=== PATIENT | female | born 1975 | race Caucasian/White ===

== ENCOUNTER 2019-03-23 13:10 | Outpatient (CLI) | payer MEDICAID ==
[~2019-03-23] VITALS: Ht 154.9 cm; Wt 91.6 kg
[~2019-03-23 13:10] MED LIST: PREN-39 PO
[2019-03-23 13:14] VITALS: Ht 154.9 cm; Wt 91.6 kg
[2019-03-23 13:56] VITALS: BP 133/87; PULSE 90; RESP 19
--- NOTE | 2019-03-23 15:11 | PN ---
Triage Information Date/Time March 23, 2019 Reason for visit: Rule out PIH Weeks of Gestation 33 weeks and 1 day /Para 8 para 7 Diabetes: none Hypertention: none Additional information 43-year-old G8, P7 with IUP at 33 weeks and 1 day with care with Dr. Bobby Zaman, was sent from the clinic to triage today for rule out PIH due to borderline elevated blood pressure. Patient denies any headache, blurred vision, epigastric pain or right upper quadrant pain. She denies any leaking of fluid, vaginal bleeding decreased movement or contractions. Objective Vital Signs Date Temp Pulse Resp B/P (MAP) Pulse Ox O2 O2 Flow FiO2 Time Delivery Rate 03/23/19 98.1 90 19 133/87 Room Air 13:56 (102) Heart Rate: 130's Heart Rate Comments NST: Category 1 and appropriate for gestational age Abdomen: Soft, gravid, fundal height consider gestational age NST: Category 1 Blood pressures during monitoring all 130s over 80s Laboratory Tests Test 03/23/19 13:22 03/23/19 13:34 Urine Color YELLOW Urine Clarity CLOUDY A Urine pH 5.0 Urine Specific [place] 1.021 Urine Ketones NEGATIVE Urine Nitrite NEGATIVE Urine Bilirubin NEGATIVE Urine Urobilinogen NEGATIVE Urine Leukocyte Esterase 3+ H Urine Microscopic RBC 7 H Urine Microscopic WBC 22 H Urine Squamous Epithelial Cells MODERATE Urine Bacteria FEW A Urine Hemoglobin NEGATIVE Urine Glucose NEGATIVE Urine Total Protein NEGATIVE White Blood Count 8.1 Red Blood Count 4.27 Hemoglobin 13.0 Hematocrit 37.6 Mean Corpuscular Volume 88.1 Mean Corpuscular Hemoglobin 30.4 Mean Corpuscular Hemoglobin Concent 34.6 Red Cell Distribution Width 12.9 Platelet Count 222 Mean Platelet Volume 10.6 H Immature Granulocytes % 0.700 H Neutrophils % 68.7 Lymphocytes % 22.5 Monocytes % 5.8 Eosinophils % 1.8 Basophils % 0.5 Nucleated Red Blood Cells % 0.0 Immature Granulocytes # 0.060 H Neutrophils # 5.6 Lymphocytes # 1.8 Monocytes # 0.5 Eosinophils # 0.2 Basophils # 0.0 Nucleated Red Blood Cells # 0.0 Prothrombin Time 12.1 Prothrombin Time Ratio 0.9 INR International Normalized Ratio 0.89 Activated Partial Thromboplast Time 28.3 Fibrinogen 604.0 H Sodium Level 137 Potassium Level 4.1 Chloride Level 105 Carbon Dioxide Level 22 Anion Gap 10 Blood Urea Nitrogen 12 Creatinine 0.63 Est Glomerular Filtrat Rate mL/min > 60 Glucose Level 81 Uric Acid 5.7 Calcium Level 9.7 Total Bilirubin 0.5 Direct Bilirubin 0.00 Indirect Bilirubin 0.5 Aspartate Amino Transf (AST/SGOT) 27 Alanine Aminotransferase (ALT/SGPT) 20 Alkaline Phosphatase 228 H Total Protein 7.7 Albumin 3.9 Globulin 3.80 H Albumin/Globulin Ratio 1.02 Results/Medications Result Diagram: 03/23/19 1334 03/23/19 1334 Results 24 hrs Laboratory Tests Test 03/23/19 13:22 03/23/19 13:34 Urine Color YELLOW Urine Clarity CLOUDY A Urine pH 5.0 Urine Specific [place] 1.021 Urine Ketones NEGATIVE Urine Nitrite NEGATIVE Urine Bilirubin NEGATIVE Urine Urobilinogen NEGATIVE Urine Leukocyte Esterase 3+ H Urine Microscopic RBC 7 H Urine Microscopic WBC 22 H Urine Squamous Epithelial Cells MODERATE Urine Bacteria FEW A Urine Hemoglobin NEGATIVE Urine Glucose NEGATIVE Urine Total Protein NEGATIVE White Blood Count 8.1 Red Blood Count 4.27 Hemoglobin 13.0 Hematocrit 37.6 Mean Corpuscular Volume 88.1 Mean Corpuscular Hemoglobin 30.4 Mean Corpuscular Hemoglobin Concent 34.6 Red Cell Distribution Width 12.9 Platelet Count 222 Mean Platelet Volume 10.6 H Immature Granulocytes % 0.700 H Neutrophils % 68.7 Lymphocytes % 22.5 Monocytes % 5.8 Eosinophils % 1.8 Basophils % 0.5 Nucleated Red Blood Cells % 0.0 Immature Granulocytes # 0.060 H Neutrophils # 5.6 Lymphocytes # 1.8 Monocytes # 0.5 Eosinophils # 0.2 Basophils # 0.0 Nucleated Red Blood Cells # 0.0 Prothrombin Time 12.1 Prothrombin Time Ratio 0.9 INR International Normalized Ratio 0.89 Activated Partial Thromboplast Time 28.3 Fibrinogen 604.0 H Sodium Level 137 Potassium Level 4.1 Chloride Level 105 Carbon Dioxide Level 22 Anion Gap 10 Blood Urea Nitrogen 12 Creatinine 0.63 Est Glomerular Filtrat Rate mL/min > 60 Glucose Level 81 Uric Acid 5.7 Calcium Level 9.7 Total Bilirubin 0.5 Direct Bilirubin 0.00 Indirect Bilirubin 0.5 Aspartate Amino Transf (AST/SGOT) 27 Alanine Aminotransferase (ALT/SGPT) 20 Alkaline Phosphatase 228 H Total Protein 7.7 Albumin 3.9 Globulin 3.80 H Albumin/Globulin Ratio 1.02 Imaging Results PROCEDURE: US OB biophysical profile. CLINICAL INDICATION: decreased movements, PIH TECHNIQUE: Multiple sonographic images of the pelvis were obtained. The images were reviewed on a PACS workstation. COMPARISON: No prior studies are available for comparison. FINDINGS: There is a single live intrauterine gestation. Cardiac activity is present with 125 beats per minute. There is a vertex presentation. The placenta is anterior fundal. There is no evidence of placental abruption. ABHIJIT = 9.7 cm. Biophysical profile: movement 2/2 tone 2/2. breathing 2/2 ABHIJIT 2/2 Total 04/20 RPTAT: AA . IMPRESSION: Normal biophysical profile. . Disposition: Discharge Assessment/Plan IUP at 33 weeks and 1 day No evidence of PIH Blood pressures during monitoring are all in normal range and 130s over 80s to 70s PIH labs are normal. Patient asymptomatic. Patient discharged home in stable condition. Strict labor precautions and kick count and PIH precautions discussed with the patient. Patient verbalized understanding. All questions were answered to patient's with satisfaction. Follow-up with primary OB office within 1 to 2 days after discharge from the hospital discussed All the danger signs and symptoms reviewed with the patient with INGRIS DAO MD Mar 23, 2019 15:11
--- NOTE | 2019-03-24 11:26 | NSTRPT ---
NST Information Datetime Report Generated by CPN: 03/24/2019 11:26 Datetime: 03/23/2019 13:33 NST Information EGA: 33.1 Datetime: 03/23/2019 11:43 NST Information EGA: 33.1 Datetime: 03/23/2019 11:25 Test Number: 1 Time on Monitor: 03/23/2019 11:50 Time off Monitor: 03/23/2019 13:53 NST Duration (Min): 123 Reason for NST: Poor Growth; Other Reason for NST Other: Advanced Maternal Age/Size less than dates Test and Monitor Explained: Monitor Explained; Test Explained; Verbalized Understanding; Breastfeed ing Info Given Pulse: 67 Resp: 18 SBP: 142 DBP: 83 Test Evaluation NST Interventions: None Patient States Movement: Present Contraction Frequency: NONE FHR Baseline : 130 Variability: Moderate 6-25bpm Accelerations: 15X15 Decelerations: None FHR Category: Category I NST Results: Reactive Comments: To u/s.ABHIJIT 9.0cm. CEPHALIC. BP: 141/86, 142/84. Pt denies any heacaches, blurry vision, epigastric pain. Electronically Signed By E-Signature: with User ID: [id number]
== END 2019-03-23 15:30 | disposition home or self-care (01) ==
LOC: OBT 13:10 → L-D 13:11 → OBT 15:30
PROVIDERS: ATTEND Obstetrics & Gynecology
DX: O60.03 Preterm labor without delivery, third trimester (principal); O09.523 Supervision of elderly multigravida, third trimester; O13.9 Gestational [pregnancy-induced] hypertension without significant proteinuria, unspecified trimester; Z3A.33 33 weeks gestation of pregnancy
CPT/HCPCS: 76818; 80053; 81001; 84560; 85025; 85384; 85610; 85730; Z7500; G0463

== ENCOUNTER 2019-03-27 12:39 | Inpatient (IN) | payer MEDICAID ==
[~2019-03-27] VITALS: Ht 154.9 cm; Wt 93.5 kg
--- NOTE | 2019-03-27 13:17 | TRIAGE ---
OB Triage Datetime Report Generated by CPN: 03/27/2019 13:17 Datetime: 03/27/2019 12:31 Time of Arrival: 03/27/2019 12:31 EGA: 33.5 Arrived By: Ambulatory Arrived From: Other Unit in Hospital Chief Complaint: PT CAME IN FROM NST CLINIC DUE TO HIGH BLOOD PRESSURESS 154/77, 156/83, 138/86, PT STATES HAVING BLURRED VISION, DENIES EPIGASTRIC PAIN AND STATES THAT HER HANDS HAVE BEEN SWELLEND Movement: Present Contractions: Denies/Absent Rupture of Membranes: Denies Vaginal Discharge: Denies Recent Sexual Intercouse: Denies Abdominal Trauma: Not Applicable Time Provider Notified: 03/27/2019 12:50 Provider Notified: ESHAGHIAN Datetime: 03/23/2019 15:11 Labor Evaluation Frequency: occas Monitor Mode: External Duration (sec)2399: 50-80 Quality: Mild Pattern: Normal: <= 5 Contractions in 10 Minutes Resting Tone [place]: Relaxed Heart Rate FHR Baseline Rate: 140 Monitor Mode: External US Variability: Moderate 6-25 bpm Accelerations: 15X15 Decelerations: None Category: Category I Datetime: 03/23/2019 13:54 Labor Evaluation Frequency: 0 Monitor Mode: External Pattern: Normal: <= 5 Contractions in 10 Minutes Resting Tone [place]: Relaxed Heart Rate FHR Baseline Rate: 135 Monitor Mode: External US Variability: Moderate 6-25 bpm Accelerations: 15X15 Decelerations: None Category: Category I Datetime: 03/23/2019 13:52 Assessment Type: Triage Maternal Assessment Level of Consciousness: Keenly Alert, Responsive DTR's/Clonus: DTRs 2+; No Clonus Headache: Denies Blurred Vision: No Respiratory Effort: Unlabored; Regular Rhythm; Equal Expansion Breath Sounds, Left: Clear and Equal Breath Sounds, Right: Clear and Equal Nausea/Vomiting: Denies RUQ Epigastric Pain: Denies Lower Extremities Edema: None Degree: None Upper Extremities Edema: None Degree: None Facial Edema: None Fall Risk Assessment History of Falling: (0) No Secondary Diagnosis: (0) No Ambulatory Aid: (0) Bedrest/Nurse Assist IV Therapy: (0) No Gait: (0) Normal/Bedrest/Immobile Mental Status: (0) Oriented to Own Ability Fall Score: 0 Fall Risk Score Definition: No Risk: No action required Datetime: 03/23/2019 13:33 EGA: 33.1 Datetime: 03/23/2019 13:20 Time of Arrival: 03/23/2019 12:53 EGA: 33.1 Arrived By: Ambulatory Arrived From: Other Unit in Hospital Movement: Present Contractions: Denies/Absent Rupture of Membranes: Denies Vaginal Bleeding: None Vaginal Discharge: Denies Recent Sexual Intercouse: Denies Abdominal Trauma: Not Applicable Patient Complaints: Other Additional Patient Complaints: ELEVATED BP'S Time Provider Notified: 03/23/2019 15:14 Provider Notified: DR MIKE Initial Plan: PI LABS NST AND BPP
[2019-03-27 14:20] VITALS: BP 128/86; PULSE 65; RESP 18
--- NOTE | 2019-03-27 14:51 | PREOPHP ---
DATE OF ADMISSION: 03/27/2019 HISTORY OF PRESENT ILLNESS: The patient is a 43-year-old 8, para 7, EDC 05/02/2019, intraute rine at 33 weeks and 5 days gestational age, was sent from [facility] clinic for evaluation of carlos vated blood pressure. Her highest blood pressure was 162/95. She currently denies any headache, iman sea, vomiting, shortness of breath, visual change, or epigastric pain and her indication for her nons tress test was for small for dates and advanced maternal age. PAST MEDICAL HISTORY: None. MEDICATIONS: vitamins. PAST SURGICAL HISTORY: None. OBSTETRIC HISTORY: x6 vaginal deliveries, x1 delivery. GYNECOLOGIC HISTORY: 14, regular 3 to 4 days. Denies any sexually transmitted infections. Sexually active with 1 partner. SOCIAL HISTORY: Denies any smoking, drugs or alcohol. FAMILY HISTORY: None. REVIEW OF SYSTEMS: All within normal except history of present illness. PHYSICAL EXAMINATION: HEENT: Within normal. LUNGS: CTA bilateral. CARDIOVASCULAR: S1, S2, regular rhythm. ABDOMEN: Gravid, nontender. Negative CVA bilateral. EXTREMITIES: Negative edema. No calf tenderness. PELVIC: Vaginal exam of 130 -3. heart tracing category 1. [place]: Occasional contractions. ASSESSMENT: A 43-year-old 8, para 7, intrauterine at 33 weeks and 5 days gestation al age, gestational hypertension, rule out preeclampsia, advanced maternal age, previous sec tion x1. PLAN: Admit patient for seizure prophylaxis with magnesium sulfate. PIH labs with 24-hour urine col lection, labetalol IV push/antihypertensive medication. Biophysical profile with an EFW, steroid walter atment for lung maturity and perinatology and neonatology consult. Continue strict preeclampti c precautions. Dictated By: VIDA GARNER MD ME/MARGIE Conf#: [id number] DID#: [id number]
[2019-03-27] MEDS: LACTATED RINGER'S 1,000 ML IV SCH ×2 (14:54→22:17)
[2019-03-27] MEDS ORDERED: MAGNESIUM SULFATE 4 GM/100 ML 100 ML IV ONE (15:00)
[2019-03-27] MEDS ORDERED: LABETALOL HCL 20MG INJ IV PRN (15:00)
[2019-03-27] MEDS: MAGNESIUM SULFATE 20 GM/500 ML 500 ML IV SCH (15:52)
[2019-03-27] MEDS: BETAMET NA PHOS/AC(6 MG/ML) 2 ML INJ SYG IM SCH (16:12)
[2019-03-28] MEDS: MAGNESIUM SULFATE 20 GM/500 ML 500 ML IV SCH ×2 (00:12→11:27)
[2019-03-28] MEDS ORDERED: ACETAMINOPHEN 325 MG TAB PO PRN (00:30)
[2019-03-28] MEDS: PRENATAL VITAMIN PO SCH (09:47)
[2019-03-28] MEDS: FERROUS SULFATE (EC) 325 MG TAB PO SCH (09:47)
[2019-03-28] MEDS: LACTATED RINGER'S 1,000 ML IV SCH (11:27)
[2019-03-28] MEDS: BETAMET NA PHOS/AC(6 MG/ML) 2 ML INJ SYG IM SCH (16:03)
--- NOTE | 2019-03-28 18:45 | QN ---
Documentation Comment progress note patient seen and evaluated no headache n/v,sob, visual changes, epigastric pain vs stable afebrile ab gravid, nt extremity no edema no calf tenderness a/ A 43-year-old 8, para 7, intrauterine at 33 weeks and 5 days gestational age, gestational hypertension, rule out preeclampsia, advanced maternal age, previous section x1. s/p mg and steroid treatment p/ f/u 24 hr urine collection preeclamptic precautions VIDA GARNER MD Mar 28, 2019 18:45
[2019-03-28] MEDS ORDERED: GLUCOSE GEL 15 GRAM TUBE PO PRN ×2 (21:00)
[2019-03-28] MEDS ORDERED: DEXTROSE 50% 50 ML SYRINGE IV PRN ×2 (21:00)
[2019-03-28] MEDS ORDERED: GLUCAGON 1 MG INJ IM PRN (21:00)
[2019-03-28] MEDS ORDERED: INSULIN REGULAR, HUMAN 100 UNIT/1 ML 3ML VIAL SC ONE (21:00)
[2019-03-28] MEDS ORDERED: GLUCOSE GEL 15 GRAM TUBE BUCCAL PRN (21:00)
[2019-03-28 21:08] VITALS: Ht 154.9 cm; Wt 93.5 kg
[2019-03-29] MEDS: PRENATAL VITAMIN PO SCH (09:55)
[2019-03-29] MEDS: FERROUS SULFATE (EC) 325 MG TAB PO SCH (09:55)
--- NOTE | 2019-03-29 18:44 | LDN ---
Date/Time of Note Date/Time of Note DATE: 03/29/19 TIME: 18:43 Delivery Summary Weeks of Gestation 39 Placenta Delivered: Spontaneously Meconium: Thick Episiotomy: No Anesthesia type: None Estimated blood loss: 150 Sponge & Needle done & correct: Yes All needle counts correct: Yes Any foreign bodies felt in the: No Delivery Information Sex Infant Sex: female Apgars 1 Minute: 8 5 Minute: 9 Suctioning Nose & mouth suctioned at sanjana: No Delee suction performed: No Umbilical Cord Umbilical cord with: 3 Vessels Cord presentations: no nuchal cord Cord Blood was obtained: Yes VIDA GARNER MD Mar 29, 2019 18:44
--- NOTE | 2019-03-29 18:53 | QN ---
Documentation Comment progress note patient seen and evaluated no headache n/v,sob, visual changes, epigastric pain vs stable afebrile ab gravid, nt extremity no edema no calf tenderness a/ A 43-year-old 8, para 7, intrauterine at 33 weeks and 6 days gestational age, gestational hypertension, rule out preeclampsia, advanced maternal age, previous section x1. s/p mg and steroid treatment p/ f/u 24 hr urine collection preeclamptic precautions discharge home if stable VIDA GARNER MD Mar 29, 2019 18:53
--- NOTE | 2019-03-29 18:57 | PD.PPDC ---
CIRCULATION REPRESENTATIVE Discharge Instruction Condition [id number] Patient Condition: Wyzrl1u Fair Diet Lojkj1Gq Diet: Mqgeh1h Special Diet (low sodium) Follow-up Follow-up with Physician: 1, Day/Days Provider Information: blood pressure check Return to clinic for [id number] SLABBER LIGHT Instructions: [id number] Fever greater than 101 Chills Worsening abdominal pain Excessive Vaginal Bleeding More than 2 pads per hour Unable to tolerate diet [id number] OB Instructions: Creny1a Breast Tenderness Depression Blurried Vision Headache VIDA GARNER MD Mar 29, 2019 18:57
--- NOTE | 2019-03-30 03:28 | DS ---
DATE OF ADMISSION: 03/27/2019 DATE OF DISCHARGE: 03/29/2019 PRIMARY DIAGNOSIS: Intrauterine at 33 weeks and 6 days gestational age with gestational hy pertension, undelivered. PROCEDURE: None. CONDITION ON DISCHARGE: Stable. ACTIVITY: As tolerated. DIET: Low sodium. MEDICATIONS ON DISCHARGE: Continue vitamins. DISCHARGE SUMMARY: Ms. Ginna Padilla is a 43-year-old female currently a 33 weeks and 6 days gesta tional age, was admitted on 03/27/2019, secondary to elevated blood pressures, which was found during her NST clinic. During her stay at the hospital, she received steroid treatment for lung matu rity and was also given magnesium sulfate for seizure prophylaxis. She currently denies any headache , nausea, vomiting, shortness of breath, visual changes or epigastric pain. Her blood pressures have been stable. She will be discharged home on 03/29/2019, after a 24-hour urine collection has been c ollected and strict preeclamptic precautions are given to the patient. The patient will follow up in the clinic with her primary OB doctor the following day for blood press ure check and for further evaluation. Dictated By: VIDA ARGUETA/MARGIE Conf#: [id number] DID#: [id number]
--- NOTE | 2019-03-30 13:16 | NSTRPT ---
NST Information Datetime Report Generated by CPN: 03/30/2019 13:16 Datetime: 03/27/2019 10:26 NST Information EGA: 33.5 Test Number: 2 Time on Monitor: 03/27/2019 11:19 Time off Monitor: 03/27/2019 11:39 NST Duration (Min): 20 Reason for NST: Poor Growth; Other Reason for NST Other: Advanced Maternal Age/Size less than dates Test and Monitor Explained: Monitor Explained; Test Explained; Verbalized Understanding Pulse: 67 Resp: 16 SBP: 154 DBP: 77 Test Evaluation NST Interventions: None Patient States Movement: Present Contraction Frequency: 0 FHR Baseline : 145 Variability: Moderate 6-25bpm Accelerations: 15X15 Decelerations: None FHR Category: Category I NST Results: Reactive Comments: To u/s CEPHALIC ABHIJIT-13.4CM Repeat BP's 156/83, 138/[address] Xie, recommends evaluation in Triage. Call placed to Casimiro Zaman. Report called to Keiry Thao, Triage. POC discussed with pt, states understanding and w ill go to triage for evaluation. Electronically Signed By E-Signature: with User ID: [id number] Datetime: 03/23/2019 13:33 NST Information EGA: 33.1 Datetime: 03/23/2019 11:43 NST Information EGA: 33.1 Datetime: 03/23/2019 11:25 NST Duration (Min): 123
== END 2019-03-29 22:00 | disposition home or self-care (01) | DRG 833 ==
LOC: OBT 12:39 → L-D 12:42 → OBT 12:50 → L-D 19:24
PROVIDERS: ADMIT Obstetrics & Gynecology; ATTEND Obstetrics & Gynecology
DX: O13.3 Gestational [pregnancy-induced] hypertension without significant proteinuria, third trimester (principal); O36.5930 Maternal care for other known or suspected poor fetal growth, third trimester, not applicable or unspecified; O09.523 Supervision of elderly multigravida, third trimester; Z3A.33 33 weeks gestation of pregnancy
CPT/HCPCS: 76815; 76817; 76818; 80053; 81001; 82575; 82962; 83036; 83735; 84156; 84560; 85025; 85384; 85610; 85730; 86850; 86900; 86901; G0463; J0702; J1815; J3475; J7120

== ENCOUNTER 2019-04-13 13:00 | Outpatient (CLI) | payer MEDICAID ==
[~2019-04-13] VITALS: Ht 154.9 cm; Wt 93.1 kg
[2019-04-13 13:35] VITALS: Ht 154.9 cm; Wt 93.1 kg
[2019-04-13 13:37] VITALS: BP 152/86; PULSE 65; RESP 19
== END 2019-04-13 15:35 | disposition home or self-care (01) ==
LOC: OBT 13:00 → L-D 13:00 → OBT 15:35
PROVIDERS: ATTEND Obstetrics & Gynecology
DX: O24.419 Gestational diabetes mellitus in pregnancy, unspecified control (principal); O13.3 Gestational [pregnancy-induced] hypertension without significant proteinuria, third trimester; O36.5930 Maternal care for other known or suspected poor fetal growth, third trimester, not applicable or unspecified; O23.43 Unspecified infection of urinary tract in pregnancy, third trimester; O09.523 Supervision of elderly multigravida, third trimester; Z3A.36 36 weeks gestation of pregnancy
CPT/HCPCS: 76818; 80053; 81001; 84560; 85025; 85384; 85610; 85730; 87086; Z7500; G0463

== ENCOUNTER 2019-04-19 14:10 | Inpatient (IN) | payer MEDICAID ==
[~2019-04-19] VITALS: Ht 154.9 cm; Wt 94.4 kg
[~2019-04-19 14:10] MED LIST changes: +EPHEDrine 25 MG/5 ML SYG ONE; +OXYTOCIN 30 UNITS/LR 500 ML BAG IV ONE; +PHENYLephrine (100 MCG/ML) 10ML SYG ONE
[2019-04-19 15:01] VITALS: BP 145/81; PULSE 68; RESP 18; Ht 154.9 cm; Wt 94.4 kg
[2019-04-19] MEDS ORDERED: LACTATED RINGER'S 1,000 ML IV SCH (18:03)
[2019-04-19] MEDS ORDERED: MAGNESIUM SULFATE 20 GM/500 ML 500 ML IV SCH ×2 (18:05→18:19)
[2019-04-19] MEDS ORDERED: MAGNESIUM SULFATE 4 GM/100 ML 100 ML ONE (18:05)
[2019-04-19] MEDS ORDERED: MAGNESIUM SULFATE 4 GM/100 ML 100 ML IVPB ONE (18:15)
[2019-04-19] MEDS ORDERED: LABETALOL HCL 20MG INJ ONE (18:25)
[2019-04-19] MEDS ORDERED: CARBOPROST 250 MCG INJ IM PRN (18:30)
[2019-04-19] MEDS ORDERED: LABETALOL HCL 20MG INJ IV PRN ×2 (18:30)
[2019-04-19] MEDS ORDERED: OXYTOCIN 30 UNITS/LR 500 ML IV PRN (18:30)
[2019-04-19] MEDS ORDERED: METHYLERGONOVINE 0.2 MG INJ IM PRN (18:30)
[2019-04-19] MEDS ORDERED: hydrALAzine 20 MG INJ IV PRN (18:30)
[2019-04-19] MEDS ORDERED: CEFAZOLIN 2 GM/50 ML (PMX) 50 ML IVPB SCH (18:30)
[2019-04-19] MEDS ORDERED: MISOPROSTOL 200 MCG TAB PR PRN (18:30)
[2019-04-19] MEDS ORDERED: MAGNESIUM SULFATE 2 GM/50 ML 50 ML IVPB SCH (18:30)
[2019-04-19] MEDS ORDERED: LABETALOL HCL 20MG INJ IV ONE (18:30)
[2019-04-19] MEDS ORDERED: MAGNESIUM SULFATE 4 GM/100 ML 100 ML IV ONE (18:30)
[2019-04-19] MEDS ORDERED: OXYTOCIN 30 UNITS/LR 500 ML IV SCH (18:30)
--- NOTE | 2019-04-19 21:03 | PREAC ---
Date/Time of Note Date/Time of Note DATE: 04/19/19 TIME: 21:02 Anesthesia Eval and Record Evaluation Time Pre-Procedure Interview DATE: 04/19/19 TIME: 21:02 Age 43 Sex female NPO: 8 hrs Preoperative diagnosis Planned procedure c/s Past Medical History Past Medical History: Includes Cardio: HTN GI: Obesity Surgery & Anesthesia Issues No known issue Meds Anticoagulation: No Beta Teresa within 24 hr: No Reason Beta Teresa not given: Pt. not on B-Teresa Reported Medications Vits W-Ca,Fe,Fa(<1MG) ( Vitamins) 1 Tab Tablet, 1 TAB PO DAILY 03/27/14 Current Medications Lactated Ringer's 1,000 ml @ 125 mls/hr Q8H IV Last administered on 04/19/19at 18:21; Admin Dose 125 MLS/HR; Start 04/19/19 at 18:03 Cefazolin Sodium/ Dextrose 50 ml @ 100 mls/hr ONCE IVPB ; Start 04/19/19 at 18:30 Oxytocin/Lactated Ringer's 500 ml @ 125 mls/hr POST IV ; Start 04/19/19 at 18:30 Oxytocin/Lactated Ringer's 500 ml @ 0 mls/hr ONCE PRN IV .VAGINAL BLEEDING; Start 04/19/19 at 18:30 Methylergonovine Maleate (Methergine) 0.2 mg ONCE PRN IM .VAGINAL BLEEDING; Start 04/19/19 at 18:30 Carboprost Tromethamine (Hemabate) 250 mcg ONCE PRN IM .VAGINAL BLEEDING; Start 04/19/19 at 18:30 Misoprostol (Cytotec) 1,000 mcg ONCE PRN IN .VAGINAL BLEEDING; Start 04/19/19 at 18:30 Labetalol HCl (Labetalol) 40 mg ONCE PRN IV ELEVATED BLOOD PRESSURE; Start 04/19/19 at 18:30 Labetalol HCl (Labetalol) 80 mg ONCE PRN IV ELEVATED BLOOD PRESSURE; Start 04/19/19 at 18:30 Hydralazine HCl (Apresoline) 10 mg ONCE PRN IV ELEVATED BLOOD PRESSURE; Start 04/19/19 at 18:30 Magnesium Sulfate 500 ml @ 50 mls/hr Q10H IV Last administered on 04/19/19at 18:38; Admin Dose 50 MLS/HR; Start 04/19/19 at 18:19 Meds reviewed: Yes Allergies Coded Allergies: shrimp (Verified Allergy, Mild, HIVES, 04/19/19) Allergies Reviewed: Yes Labs/Studies Labs Reviewed: Reviewed by anesthesiologist Result Diagram: 04/19/19 1548 04/19/19 1817 Laboratory Tests 04/19/19 15:48 04/19/19 18:17 Blood Bank Test 04/19/19 15:45 Antibody Screen NEGATIVE Blood Type O POSITIVE Rh Immune Globulin Candidate NO test: Positive Pre-procedure Exam Last vitals Vital Signs Date Temp Pulse Resp B/P (MAP) Pulse Ox O2 O2 Flow FiO2 Time Delivery Rate 04/19/19 98.2 68 18 145/81 Room Air 15:01 (102) Airway: Adequate mouth opening, Adequate thyromental dist Mallampati: Mallampati II Teeth: Normal Lung: Normal Heart: Normal ASA Physical Status ASA physical status: 2 Emergency: None Planned Anesthetic Neuraxial: Spinal, Epidural Planned Pain Management Sub-arachniod narcotics Pre-operative Attestations Prior to commencing anesthesia and surgery, the patient was re-evaluated, there was verification of: *The patient's identity *The results of appropriate recent lab work and preoperative vital signs *The above evaluation not changing prior to induction *Anesthetic plan, risk benefits, alternative and complications discussed with patient/family; questions answered; patient/family understands, accepts and wishes to proceed. BABS KEMP Apr 19, 2019 21:03
[2019-04-19] MEDS ORDERED: morphine SULFATE/PF (10 MG/10 ML) INJ ONE (21:11)
[2019-04-19] MEDS ORDERED: ONDANSETRON 4 MG INJ IV STA (21:27)
[2019-04-19] MEDS ORDERED: CITRIC ACID/NA CITRATE 30 ML CUP PO ONE (21:30)
[2019-04-19] MEDS ORDERED: HYDROmorphONE 1 MG/5 ML IV SYRINGE IV PRN ×3 (21:30)
[2019-04-19] MEDS ORDERED: NALOXONE (0.4 MG/ML) INJ IV PRN (21:30)
[2019-04-19] MEDS ORDERED: ALBUTEROL 0.083% (NEB) 2.5 MG/3 ML AMP HHN PRN (21:30)
[2019-04-19] MEDS ORDERED: ONDANSETRON 4 MG INJ IV PRN ×2 (21:30)
[2019-04-19] MEDS ORDERED: DIPHENHYDRAMINE 50 MG INJ IV PRN ×2 (21:30)
[2019-04-19] MEDS ORDERED: FENTAnyl 50 MCG/ML VIAL IV PRN ×3 (21:30)
[2019-04-19] MEDS ORDERED: KETOROLAC 30 MG INJ IV PRN ×2 (21:30)
[2019-04-19] MEDS ORDERED: METOCLOPRAMIDE 10 MG INJ IV ONE (21:30)
[2019-04-19] MEDS ORDERED: HYDROmorphONE 0.5 MG/0.5 ML SYG IV PRN ×2 (21:30)
[2019-04-19] MEDS ORDERED: METOCLOPRAMIDE 10 MG INJ IV PRN (21:30)
[2019-04-20] VITALS (22 sets, daily range): BP systolic 115–140; BP diastolic 58–83; PULSE 73–101; RESP 16–18
--- NOTE | 2019-04-20 01:10 | HP ---
Date/Time of Note Date/Time of Note DATE: 04/20/19 TIME: 00:56 OB - History Hx of Present Free Text/Dictation April 19, 2019 Late entry note Estimated Due Date: Apr 20, 2019 : 8 Para: 7 Care: Good Care Other Concerns: 43-year-old with IUP at 37 weeks and care with priority clinic, was sent from the clinic due to elevated blood pressure noted during office visi t. Patient was sent for rule out PIH. Antepartum course was considered complicated by GDM A1 diet control. Patient also had a history of x1 and after x1. During observation in triage noted to have elevated blood pressure in the range of 180s over 90s. Patient was asymptomatic however due to elevated blood pressure in the severe range that meet the criteria for severe preeclampsia discussed with the patient regarding section. She received a dose of labetalol 20 mg IV and started on magnesium for seizure prophylaxis. Past Family/Social History * Past Medical, Surgical, Family and Obstetric Histories reviewed from chart. Blood Type: O+ Rubella: immune RPR/VDRL: Negative GBS Status: Positive HBsAG: Negative OB Admission Exam Vital Signs Vital Signs Vital Signs Date Temp Pulse Resp B/P (MAP) Pulse Ox O2 O2 Flow FiO2 Time Delivery Rate 04/19/19 98.2 68 18 145/81 Room Air 15:01 (102) Physical Exam HEENT: WNL Lungs: Clear Abdomen: WNL Extremities: Normal Cervical Dilatation: None Effacement: 0% Station: -3 Membranes: Intact Heart Rate: 130's Accelerations: Accelerations Present Decelerations: No Decelerations Varibility: Moderate Contractions on Admission: >10 Minutes Apart Intensity: Mild Last 72 hourBlood Glucose PROCEDURE: US Obstetrical , limited CLINICAL INDICATION: Biophysical profile for well being, gestational diabetes. TECHNIQUE: Multiple real-time images were acquired of the patient's maternal abdomen utilizing a curved array transducer. COMPARISON: 04/13/2019 FINDINGS: There is a single live intrauterine fetus in a cephalic presentation. The placenta is implanted fundal/anteriorly and is grade II. There is no placenta previa or abruptio evident. The amniotic fluid index measures 9.1 cm. The heart rate is 168 beats per minute. Biophysical profile: Tone: 2 breathin Gross body movement: 2 Amniotic fluid: 2 Biophysical profile score: 8/8 IMPRESSION: 1. Single live intrauterine fetus, cephalic presentation, unchanged. The heart rate is 168 bpm. 2. Fundal/anterior placenta, grade 2, no previa or abruptio is evident. 3. Amniotic fluid index 9.1 cm. 4. Biophysical profile score: 8/8, unchanged. Last 72 hours Lab Results CBC & BMP 04/19/19 15:48 04/19/19 18:17 Liver Function Test 04/19/19 15:48 Alanine Aminotransferase (ALT/SGPT) 29 Albumin 3.2 L Alkaline Phosphatase 226 H Aspartate Amino Transf (AST/SGOT) 21 Direct Bilirubin 0.00 Total Protein 6.5 OB Assessment/Plan Other Assessment: IUP at 37 weeks Chronic hypertension with superimposed severe preeclampsia based on blood pressure criteria, required IV antihypertensive medication Renal GDM x1 diet controlled History of x1 and [place] x 1 Grand multiparous, Far from labor. Discussed with the patient regarding section, Risk and benefit of section including risk of infection, bleeding, damage to surrounding structures including bowel and bladder and risk of blood transfusion including but not limited to blood borne infection including HIV, hepatitis B and C and transfusion reaction discussed with the patient in detail informed consent was obtained. Patient verbalized understanding all above risks. She accepts blood transfusion in case of emergency. All questions were answered to patient's best satisfaction OR in NICU and anesthesia was notified. Consented for section. Received Ancef prior to go to the OR INGRIS MIKE MD Apr 20, 2019 01:07
--- NOTE | 2019-04-20 01:20 | OPR ---
Operative Report Planned Procedure Free Text/Dictation Late entry note Procedure date Apr 20, 2019 Procedure(s) Repeat section via Pfannenstiel skin incision Performed by see signature line Document Review Specialist: NASEEM HECK Anesthesiologist: BABS KEMP Pre-procedure diagnosis 1. IUP at 37 weeks 2. Superimposed severe preeclampsia 3. History of x1 and TOLAC x1. Far from labor 4. GDM, A1, diet-controlled [id number] Anesthesia Type: [id number] spinal Post-Procedure Post-procedure diagnosis Same Findings Live Baby [Girl], Apgars [8, 9] and weight 8 lb and 5 oz position Vertex, presentation Estimated Blood Loss: 500 - 600 mls Specimen(s) none Grafts/Implant(s) none Complication(s) none Pt Condition post procedure: stable Disposition: PACU Procedure Description 43-year-old G8, P7 IUP at 37 weeks and history of chronic hypertension, GDM A1 and x1, was sent from clinic to rule out PIH due to elevated blood pressure in the office visit. Patient noted to have elevated blood pressure in the range of severe and required IV labetalol For that reason patient was candidate for repeat section. Risk and benefit of section including risk of infection, bleeding, damage to surrounding structures including bowel and bladder and risk of blood transfusion including but not limited to blood borne infection including HIV, hepatitis B and C and transfusion reaction discussed with patient informed consent was obtained. Patient received a dose of Ancef prior to be taken to the OR. She was then taken to the OR and was placed in dorsal supine position after adequate spinal anesthesia. Timeout procedure completed and patient was identified correctly. first a Pfannenstiel skin incision was made in the area of prior incision was carried down to the underlying layer fascia using scalpel and Bovie. Superior aspect of fascial incision was then grasped using [place], was elevated and was dissected off of the rectus muscle using blunt and sharp dissection. Then the inferior aspect of fascial incision in a similar fashion was grasped using Diane, was elevated dissected off of the parameters muscle in a similar f ashion. Rectus muscle was dissected in the midline. Parietal peritoneum was entered bluntly. Intra-abdominal cavity entered without any complication. Omental adhesion was noted that was gently lysed carefully. Lower uterine segment was identified. Bladder flap was created. Lower uterine incision was incised transversely. Baby's head was grasped was brought up to the incision while mobile sales assistant was applying fundal pressure vertex was delivered. Upon delivery of the head nose and mouth was suctioned immediately. Then posterior shoulder and anterior shoulder and the rest of the body while mobile sales assistant was applying fundal pressure was delivered without any complication. Delayed cord clamp for 30 seconds done. Cord was then clamped and cut and baby was handed to the waiting nursing team. Placenta was delivered intact and complete. Uterus was cleared of all clots and debris's. Uterine incision repaired in 2 layers using 1-0 Monocryl. First layer used for hemostasis and the second layer used for imbrication. After assurance about hemostasis and Surgicel was applied over the incision. Gutters were cleared of all clots and debris's. Parietal peritoneum was then repaired in the midline using 2-0 Vicryl. Rectus muscle was reapproximated using 2-0 Vicryl. Hemostasis of the muscle was obtained. The fascia was repaired using 1-0 PDS. Irrigation of suppleness tissue performed using warm normal saline. Hemostasis of subcutaneous tissue obtained. The skin was reapproximated using in sorb. Fundus was firm at the end of the delivery. Patient tolerated the procedure well. Sponge lap and needle counts were correct x2 Patient was then transferred to Recovery room in stable condition INGRIS MIKE MD Apr 20, 2019 01:20
[2019-04-20] MEDS ORDERED: OXYTOCIN 30 UNITS/LR 500 ML IV SCH (01:23)
[2019-04-20] MEDS ORDERED: OXYTOCIN 30 UNITS/LR 500 ML IV PRN (01:30)
[2019-04-20] MEDS ORDERED: NACL 0.9% 3 ML SYG IV SCH ×2 (01:30)
[2019-04-20] MEDS ORDERED: CA GLUCONATE (GM) 10% 10ML INJ IV PRN (01:30)
[2019-04-20] MEDS ORDERED: CARBOPROST 250 MCG INJ IM PRN (01:30)
[2019-04-20] MEDS ORDERED: MAGNESIUM SULFATE 4 GM/100 ML 100 ML IV SCH (01:30)
[2019-04-20] MEDS ORDERED: MISOPROSTOL 200 MCG TAB PR PRN (01:30)
[2019-04-20] MEDS ORDERED: LANOLIN HPA 1 PKT TOP PRN (01:30)
[2019-04-20] MEDS ORDERED: IBUPROFEN 600 MG TAB PO SCH (01:30)
[2019-04-20] MEDS: MAGNESIUM SULFATE 20 GM/500 ML 500 ML IV SCH ×3 (01:51→17:11)
[2019-04-20] MEDS ORDERED: ONDANSETRON 4 MG INJ IV PRN ×2 (05:30→09:00)
[2019-04-20] MEDS ORDERED: DIPHENHYDRAMINE 50 MG INJ IV PRN ×2 (05:30→09:00)
[2019-04-20] MEDS ORDERED: KETOROLAC 30 MG INJ IV PRN (09:00)
[2019-04-20] MEDS ORDERED: NALOXONE (0.4 MG/ML) INJ IV PRN (09:00)
[2019-04-20] MEDS ORDERED: ZOLPIDEM 5 MG TAB PO PRN (09:00)
[2019-04-20] MEDS ORDERED: HYDROmorphONE 0.5 MG/0.5 ML SYG IV PRN ×2 (09:00)
--- NOTE | 2019-04-20 11:12 | QN ---
Documentation Comment progress note pod 1 patient was seen and evaluated no compliants no headache, n/v, sob, visual changes, epigastric pain vs stable afebrile lung cta bl ab dressing clean/dry no distention, non tenderness extremity no edema no calf tenderness a/ sp repeat cd pod 1 currently on mg secondary to preeclampsia p/ discontinue mg and norman 24 hrs pp f/u cbc preeclamptic precautions VIDA GARNER MD Apr 20, 2019 11:12
[2019-04-20] MEDS: LACTATED RINGER'S 1,000 ML IV SCH (12:22)
[2019-04-20] MEDS: KETOROLAC 30 MG INJ IV PRN ×2 (16:44→22:44)
[2019-04-20] MEDS ORDERED: MAGNESIUM SULFATE 20 GM/500 ML 500 ML IV SCH (23:00)
[2019-04-21 00:30] VITALS: BP 124/68; PULSE 92; RESP 18
[2019-04-21] MEDS: LACTATED RINGER'S 1,000 ML IV SCH ×2 (00:50→14:10)
[2019-04-21] MEDS: HYDROCODONE/APAP (5/325) TAB PO PRN ×4 (02:35→22:48)
[2019-04-21 04:15] VITALS: BP 126/69; PULSE 89; RESP 18
[2019-04-21 08:00] VITALS: BP 115/86; PULSE 94; RESP 18
[2019-04-21 16:44] VITALS: BP 126/78; PULSE 95; RESP 18
--- NOTE | 2019-04-21 17:25 | QN ---
Documentation Comment NO c/o no b.m et VSS afebrile fundus firm abdomen soft wound dry Bs 72 lochia min calf neg for tenderness A stable psot RC/S#2 P d/s home in am JAYSHREE DENTON MD Apr 21, 2019 17:25
[2019-04-21 20:15] VITALS: BP 120/64; PULSE 72; RESP 19
[2019-04-22 03:35] VITALS: BP 126/81; PULSE 87; RESP 19
[2019-04-22] MEDS: HYDROCODONE/APAP (5/325) TAB PO PRN ×2 (07:39→16:19)
[2019-04-22 08:00] VITALS: BP_SYST 113; BP_SYST 130; BP_SYST 132; BP_DIAS 77; BP_DIAS 80; PULSE 76; PULSE 86; RESP 18; RESP 20
[2019-04-22] MEDS ORDERED: BISACODYL 10 MG SUPP PR ONE (10:30)
[2019-04-22 15:57] VITALS: BP 136/80; PULSE 98; RESP 18
--- NOTE | 2019-04-22 20:03 | DS ---
Date/Time of Note Date/Time of Note DATE: 04/22/19 TIME: 20:02 Obstetrical Discharge Record Final Diagnosis Final Diagnosis: Term delivered Other Final Diagnosis Postop day #3 Status post repeat Patient stable and afebrile Positive flatus and voiding and tolerating regular diet and ambulating Vital signs stable Hematology - 72 Hrs Test 04/20/19 11:56 Hematocrit 34.7 % (37.0-47.0) L Hemoglobin 11.9 g/dl (12.0-16.0) L Mean Corpuscular Hemoglobin 31.4 pg (29.0-33.0) Mean Corpuscular Hemoglobin Concent 34.3 g/dl (32.0-37.0) Mean Corpuscular Volume 91.6 fl (82.0-101.0) Mean Platelet Volume 10.4 fl (7.4-10.4) Platelet Count 159 10^3/UL (140-415) Red Blood Count 3.79 10^6/ul (4.20-5.40) L Red Cell Distribution Width 12.9 % (11.5-14.5) White Blood Count 7.9 10^3/ul (4.8-10.8) Chemistry Test 04/20/19 00:16 04/20/19 06:28 04/20/19 11:56 04/20/19 17:58 Magnesium 3.5 5.5 5.6 5.9 Level mg/dl (1.7-2.5) mg/dl (1.7-2.5 mg/dl (1.7-2.5 mg/dl (1.7-2.5 H ) *H ) *H ) *H Abdomen soft, fundus firm Incision clean, dry, intact Extremities nontender Assessment and plan Patient stable and doing well Plan to discharge home Prescription for pain meds were given Patient instructed to follow-up with [facility] in 1-2 and 6 weeks Section Section: Repeat Condition on Discharge Physical Assessment Last Vitals: VS - Last 72 Hours, by Label Date Temp Pulse Resp B/P (MAP) Pulse Ox O2 O2 Flow FiO2 Time Delivery Rate 04/22/19 98.5 98 18 136/80 15:57 (98) 04/22/19 98.2 86 18 132/80 08:00 (97) 04/22/19 08:00 04/22/19 98.3 87 19 126/81 Room Air 03:35 (96) 04/21/19 98.4 72 19 120/64 Room Air 20:15 (82) 04/21/19 98.2 95 18 126/78 Room Air 16:44 (94) 04/21/19 98.4 94 18 115/86 Room Air 08:00 (96) 04/21/19 98.4 89 18 126/69 Room Air 04:15 (88) 04/21/19 98.3 92 18 124/68 High Flow 00:30 (86) 04/20/19 98.3 92 16 117/62 Room Air 23:10 (80) 04/20/19 94 16 124/76 95 Room Air 22:30 (92) 04/20/19 98 18 127/78 96 Room Air 21:30 (94) 04/20/19 92 18 123/65 95 Room Air 20:30 (84) 04/20/19 98.6 98 18 121/67 Room Air 19:30 (85) 04/20/19 94 16 124/58 18:30 (80) 04/20/19 84 16 131/76 Room Air 17:30 (94) 04/20/19 98.5 94 18 121/69 98 Room Air 16:30 (86) 04/20/19 97 16 115/68 Room Air 15:30 (84) 04/20/19 101 18 128/76 14:30 (93) 04/20/19 98 16 115/64 Room Air 13:30 (81) 04/20/19 98.1 87 18 123/68 97 Room Air 12:30 (86) 04/20/19 87 119/68 11:30 (85) 04/20/19 79 16 115/66 97 Room Air 10:30 (82) 04/20/19 80 16 115/69 09:30 (84) 04/20/19 84 16 115/69 08:30 (84) 04/20/19 97.5 85 16 128/69 Room Air 07:30 (88) 04/20/19 82 131/77 06:30 (95) 04/20/19 89 136/65 05:30 (88) 04/20/19 97.9 83 18 139/69 97 Room Air 04:30 (92) 04/20/19 73 139/76 03:30 (97) 04/20/19 97.6 74 18 140/83 96 Room Air 02:20 (102) Voiding: Yes Bowel Movement: Yes Breast: Soft, non-tender Fundus: Firm Calf Tenderness: No Patient Condition: Good Copies To: CC: VIDA GARNER MD ; ROSARIO VELASQUEZ MD Apr 22, 2019 20:03
[2019-04-23] MEDS ORDERED: IBUPROFEN 600 MG TAB PO SCH (06:00)
--- NOTE | 2019-04-23 18:35 | DELSUM ---
Delivery Summary A-C Datetime Report Generated by CPN: 04/23/2019 18:35 DELIVERY PERSONNEL Inspector Precision: Kashman, Justine MATERNAL INFORMATION Delivery Anesthesia: Spinal Medications in Delivery: See anesthesia notes Delivery QBL (ml): 729 Placenta Cultured: No Maternal Complications: Other Other Maternal Complications: PIH GDM AMA LABOR SUMMARY EDC: 05/10/2019 00:00 No. Babies in Womb: 1 Attempted: No Labor Anesthesia: Intrathecal LABOR INFORMATION Group B Beta Strep: Done, Result Unknown Antibiotics # of Doses: 1 Steroids Given: None Reason Steroids Not Administered: Not Applicable MEMBRANES Membranes Rupture Method: Artificial Rupture of Membranes: 04/19/2019 23:05 Length of Rupture (hr): 0.02 Amniotic Fluid Color: Clear Amniotic Fluid Amount: Moderate Amniotic Fluid Odor: Normal STAGES OF LABOR Stage 3 hr: 0 Stage 3 min: 1 CSECTION DELIVERY Primary Indication: Repeat Elective Secondary Indication: Severe PIH, Unfavor Cervx CSection Urgency: Non Elective CSection Incidence: Repeat Labor: No Labor Elective: N/A CSection Incision: Lower Uterine Transverse BABY A INFORMATION Delivery Date/Time: 04/19/2019 23:06 Method of Delivery: Born in Route : No : N/A Forceps: N/A Vacuum Extraction: N/A Shoulder Dystocia : No SHOULDER DYSTOCIA BABY A Delivery Date/Time: 04/19/2019 23:06 PRESENTATION/POSITION BABY A Presentation: Cephalic Cephalic Presentation: Vertex Breech Presentation: N/A PLACENTA INFORMATION BABY A Placenta Delivery Time : 04/19/2019 23:07 Placenta Method of Delivery: Manual Removal Placenta Status: Delivered SCORES BABY A Heart Rate 1 min: >100 bpm Resp Effort 1 min: Good Cry Reflex Irritability 1 min: Cough/Sneeze/Pulls Away Muscle Tone 1 min: Active Motion Color 1 min: Blue/Pale Resuscitation Effort 1 min: Tactile Stimulation SCORE 1 MIN: 8 Heart Rate 5 min: >100 bpm Resp Effort 5 min: Good Cry Reflex Irritability 5 min: Cough/Sneeze/Pulls Away Muscle Tone 5 min: Active Motion Color 5 min: Body [place], Extremit Blue Resuscitation Effort 5 min: Tactile Stimulation SCORE 5 MIN: 9 INFANT INFORMATION BABY A Gestational Age at Delivery: 37.0 Gestational Status: Early Term- 37- 38.6 Weeks Infant Outcome : Liveborn, with signs of life Condition : Stable Sex: Female IDENTIFICATION/MEDS BABY A ID Band Number: [id number] ID Band Location: Right Leg; Left Arm Sensor Applied: Yes Sensor Number: [id number] Sensor Location : Cord Clamp Vitamin K Given : Not Given Erythromycin Given: Not Given WEIGHT/LENGTH BABY A Birthweight (gm): 3775 Weight (lb): 8 Weight (oz): 5 Infant Length (in): 19.00 Length (cm): 48.26 CORD INFORMATION BABY A No. Cord Vessels: 3 Nuchal Cord : N/A Cord Blood Taken: Yes Infant Suction: Mouth; Nose ASSESSMENT BABY A Infant Complications: None Physical Findings at Delivery: Within Normal Limits Respirations: Appears Normal Notary Public/ALS Called : Yes Infant Care By: DEZ Card/Demetrice Transferred To: Remains with Mother
[2019-04-26] MEDS ORDERED: IBUPROFEN 600 MG TAB PO SCH (06:00)
--- NOTE | 2019-05-04 19:27 | PAC ---
Date/Time of Note Date/Time of Note DATE: 05/04/19 TIME: 19:26 Post-Anesthesia Notes Post-Anesthesia Note Activity: WNL Respiratory function: WNL Cardiovascular function: WNL Mental status: Baseline Pain reasonably controlled: Yes Hydration appropriate: Yes Nausea/Vomiting absent: Yes BABS KEMP May 04, 2019 19:27
--- NOTE | 2019-05-04 19:28 | CONS ---
Consultation Date/Type/Reason Admit Date/Time Apr 19, 2019 at 18:06 Initial Consult Date 04/20/19 Type of Consult anesthesia Reason for Consultation duramorph follow up Date/Time of Note DATE: 05/04/19 TIME: 19:27 24 HR Interval Summary Free Text/Dictation Pt seen and examined on 04/20/19 was POD#1 s/p repeat c/s. Pt received spinal duramorph for post-op pain control. She stated she had no pain. BABS KEMP May 04, 2019 19:28
== END 2019-04-22 18:35 | disposition home or self-care (01) | DRG 788 ==
LOC: OBT 14:10 → L-D 14:12 → OBT 18:05 → L-D 18:06 → PP1 04-20 02:14
PROVIDERS: ADMIT Obstetrics & Gynecology; ATTEND Obstetrics & Gynecology
PROC: 10D00Z1 Extraction of Products of Conception, Low, Open Approach (ICD-10-PCS; principal; 2019-04-20)
DX: O14.14 Severe pre-eclampsia complicating childbirth (principal); O24.420 Gestational diabetes mellitus in childbirth, diet controlled; O34.211 Maternal care for low transverse scar from previous cesarean delivery; Z3A.38 38 weeks gestation of pregnancy; Z37.0 Single live birth
CPT/HCPCS: 76818; 80053; 81001; 82947; 83735; 84560; 85025; 85384; 85610; 85730; 86592; 86850; 86900; 86901; 87340; 99464; G0463; J0690; J1885; J2274; J2370; J2405; J2590; J2765; J3475; J7120